=== PATIENT | male | born 1960 | race Caucasian/White ===

== ENCOUNTER 2019-10-27 18:24 | Emergency (ER) | payer OTHER ==
[~2019-10-27] VITALS: Ht 167.6 cm; Wt 74.8 kg
[~2019-10-27 18:24] MED LIST: ALBU2.5V8 IH; ALPR0.25 PO; AMLO-258 PO; AMLO1TAB15 PO; CITA10TA8 PO; LEXAPRO10 MG PO; MORP30TA PO; QUET100T4 PO; RISP0.2519 PO; TIOT18CA IH; atarax PO
[2019-10-27] MEDS ORDERED: IV RINGERS SOLUTION,LACTATED 1,000 ML IV SCH (18:51)
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
[2019-10-27] MEDS ORDERED: MORPHINE SULFATE 10 MG/ML SYRINGE. SQ ONE ×2 (19:00→21:00)
--- NOTE | 2019-10-27 19:03 | NUR ---
DAUGHTER CALLED AND LEFT HER NUMBER. SHE CAN PICK HIM UP IF HE IS DISCHARGED.
[2019-10-27 19:37] LABS: BASO # 0.4 x10^3/uL (0.0-0.2); BASO % 4 % (0-3); EOS # 0.3 x10^3/uL (0.0-0.7); EOS % 3 % (0-3); HEMATOCRIT 48.1 % (39.0-53.0); HEMOGLOBIN 16.3 g/dL (13.0-17.5); LYMPH # 0.6 x10^3/uL (1.0-4.8); LYMPH % 6 % (24-48); MEAN CORPUSCULAR HEMOGLOBIN 30 pg (25-35); MEAN CORPUSCULAR HGB CONC 34 g/dL (31-37); MEAN CORPUSCULAR VOLUME 88 fL (79-100); MONO # 0.8 x10^3/uL (0.0-1.1); MONO % 8 % (0-9); NEUT # 8.2 x10^3uL (1.8-7.7); NEUT % 79 % (31-73); PLATELET COUNT 198 x10^3/uL (140-400); RED BLOOD COUNT 5.45 x10^6/uL (4.30-5.70); RED CELL DISTRIBUTION WIDTH 14.9 % (11.5-14.5); WHITE BLOOD COUNT 10.4 x10^3/uL (4.0-11.0)
[2019-10-27 19:49] LABS: CALCIUM 9.6 mg/dL (8.5-10.1); CREATININE 0.7 mg/dL (0.7-1.3); GFR 115.4; POTASSIUM 4.2 mmol/L (3.5-5.1)
[2019-10-27 20:00] LABS: ALBUMIN 3.3 g/dL (3.4-5.0); DIRECT BILIRUBIN 0.2 mg/dL (0.0-0.2); MAGNESIUM 2.1 mg/dL (1.8-2.4); TOTAL BILIRUBIN 0.5 mg/dL (0.2-1.0); TOTAL PROTEIN 7.7 g/dL (6.4-8.2)
--- NOTE | 2019-10-27 20:21 | RAD ---
CT lumbar spine without contrast, CT pelvis without contrast HISTORY: Fell 3 days ago, severe left hip pain pelvic and low back pain CT PELVIS: Axial CT images were obtained to the pelvis. A pubic ramus fracture is not identified. There is a left femoral neck fracture with angulation and mild displacement. A pelvic fracture is not identified. There is diverticulosis of the colon without diverticulitis. There is no bowel obstruction. Bladder is unremarkable. There is a right lateral abdominal wall hernia. IMPRESSION: 1. Displaced angulated left femoral neck fracture. 2. No pelvic fracture noted. End impression CT lumbar spine Axial CT images were obtained to the lumbar spine. Sagittal and coronal reconstructed images were reviewed. There is marked scoliosis. There is marked degenerative disc disease at L2-3 and L3-4. There is no acute fracture. There is unilateral spondylolysis at L5 without spondylolisthesis. There are old left rib fractures. There is not evidence of severe spinal stenosis. There is foraminal stenosis at L3-4 and L4-5. IMPRESSION: 1. Degenerative changes in the lumbar spine. 2. No acute lumbar fracture. 3. Marked scoliosis. RS Compliance Statement: One or more of the following individualized dose reduction techniques were utilized for this examination: 1. Automated exposure control 2. Adjustment of the mA and/or kV according to patient size 3. Use of iterative reconstruction technique Electronically signed by: Nam Laguna MD (10/27/2019 8:18 PM) [facility]
--- NOTE | 2019-10-27 20:22 | RAD ---
AP chest. HISTORY: Cough, congestion, fall AP view was taken of the chest. There is interstitial lung disease suggesting chronic fibrosis although an acute interstitial infiltrate is possible. There is blunting of the costophrenic angles from small effusions or pleural thickening. Heart is normal in size. There is thoracolumbar scoliosis. IMPRESSION: 1. Mild interstitial lung disease mildly more prominent than an old study from July 2010. 2. No confluent areas of infiltrate. Electronically signed by: Nam Laguna MD (10/27/2019 8:19 PM) [facility]
--- NOTE | 2019-10-27 20:23 | RAD ---
Pelvis one view, left femur AP and lateral views. HISTORY: Fall Single view was taken of the pelvis. There is no pelvic fracture. There is scoliosis in the lumbar spine. Left femur AP and lateral views were taken of the left femur. There is a displaced angulated left femoral neck fracture. There is no other femur fracture. IMPRESSION: 1. No pelvic fracture noted. 2. Left femoral neck fracture. Electronically signed by: Nam Laguna MD (10/27/2019 8:20 PM) [facility]
[2019-10-27] MEDS ORDERED: IV RINGERS SOLUTION,LACTATED 1,000 ML IV ONE (21:00)
[2019-10-27 21:09] LABS: BARBITURATES NEG (NEG); BENZODIAZEPINES NEG (NEG); CANNABINOIDS NEG (NEG); COCAINE NEG (NEG); METHADONE NEG (NEG); OPIATES POS (NEG); PHENCYCLIDINE NEG (NEG)
[2019-10-27 21:15] LABS: BILIRUBIN,URINE NEG (NEG); CLARITY,URINE CLEAR; COLOR,URINE YELLOW; GLUCOSE,URINE NEG (NEG)
[2019-10-27 21:16] LABS: AMPHETAMINE/METHAMPHETAMINE POS (NEG); BACTERIA,URINE 0 /HPF (0-FEW); NITRITE,URINE NEG (NEG); RBC,URINE OCC /HPF (0-2); SQUAMOUS EPITHELIAL CELL,UR OCC /LPF; WBC,URINE OCC /HPF (0-4)
[2019-10-27 21:24] VITALS: BP 156/97
--- NOTE | 2019-10-28 04:41 | EKG ---
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
== END 2019-10-27 22:15 | disposition short-term general hospital (02) ==
LOC: ER 18:24
DX: S72.002A Fracture of unspecified part of neck of left femur, initial encounter for closed fracture (principal); W01.0XXA Fall on same level from slipping, tripping and stumbling without subsequent striking against object, initial encounter; Y93.89 Activity, other specified; Y92.89 Other specified places as the place of occurrence of the external cause; Y99.8 Other external cause status; I10 Essential (primary) hypertension; Z86.73 Personal history of transient ischemic attack (TIA), and cerebral infarction without residual deficits; G89.29 Other chronic pain; R10.2 Pelvic and perineal pain; M54.5 Low back pain
CPT/HCPCS: 36415; 71045; 72131; 72170; 72192; 73552; 80048; 80076; 80307; 81001; 82550; 83735; 83880; 84484; 85025; 85610; 85730; 93005; 96372; 99285; J2270; J7120

== ENCOUNTER 2020-04-02 22:55 | Emergency (ER) | payer OTHER ==
[~2020-04-02] VITALS: Ht 167.6 cm; Wt 60.0 kg
[2020-04-02 22:55] VITALS: BP 136/80
[~2020-04-02 22:55] MED LIST changes: -AMLO-258 PO; +AMLO-308 PO
--- NOTE | 2020-04-02 23:47 | RAD ---
EXAM: 1. Frontal pelvis with two-view left hip. 2. Left tibia/fibula 2 views. HISTORY: Fall, left leg pain and bruising. COMPARISON: None. FINDINGS: A left hip hemiarthroplasty is in expected alignment. The joint spaces and alignment of the right hip are maintained. No pelvic or femoral fractures identified. Osteopenia appears moderate for patient age. There are moderate degenerative changes of the lower lumbar spine with a mild dextroscoliosis. There are chronic healed fracture deformities of the distal tibial and fibular diaphyses. Posterior angulation of the tibia measures 30 degrees. There is also mild medial angulation. Chronic mild depression of the medial tibial plateau is also suspected. No acute fractures are seen. IMPRESSION: 1. No acute fracture. 2. Left hip hemiarthroplasty in expected alignment. 3. Chronic healed fracture deformities of the left tibia and fibula, with 30 degrees posterior angulation of the distal tibial fragment. Electronically signed by: Ela Sims MD (04/02/2020 11:44 PM) [facility]
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
== END 2020-04-03 01:30 | disposition home or self-care (01) ==
LOC: ER 22:55
DX: S76.012A Strain of muscle, fascia and tendon of left hip, initial encounter (principal); S90.02XA Contusion of left ankle, initial encounter; J44.9 Chronic obstructive pulmonary disease, unspecified; I10 Essential (primary) hypertension; Z86.73 Personal history of transient ischemic attack (TIA), and cerebral infarction without residual deficits; G89.29 Other chronic pain; X50.9XXA Other and unspecified overexertion or strenuous movements or postures, initial encounter; W22.8XXA Striking against or struck by other objects, initial encounter; Y93.01 Activity, walking, marching and hiking; Y92.89 Other specified places as the place of occurrence of the external cause; Y99.8 Other external cause status
CPT/HCPCS: 73502; 73590; 99284

== ENCOUNTER 2020-05-21 17:40 | Emergency (ER) | payer OTHER ==
[~2020-05-21] VITALS: Ht 167.6 cm; Wt 60.0 kg
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
[2020-05-21] MEDS ORDERED: IV NORMAL SALINE 1,000ML 1,000 ML IV SCH (18:04)
[2020-05-21] MEDS ORDERED: IV RINGERS SOLUTION,LACTATED 1,000 ML IV SCH (18:04)
[2020-05-21] MEDS ORDERED: ONDANSETRON PF 4 MG/2 ML VIAL. ONE (18:06)
[2020-05-21] MEDS ORDERED: VANCOMYCIN 1 GM in IV NORMAL SALINE 250ML 250 ML IV ONE (18:15)
[2020-05-21] MEDS ORDERED: DEXTROSE 5% IV PRN (18:15)
[2020-05-21] MEDS ORDERED: FAMOTIDINE 20 MG/2 ML VIAL IVP ONE (18:15)
[2020-05-21] MEDS ORDERED: ONDANSETRON PF 4 MG/2 ML VIAL. IVP ONE (18:15)
[2020-05-21] MEDS ORDERED: NOREPINEPHRINE BITARTRATE IV PRN (18:15)
[2020-05-21] MEDS ORDERED: NOREPINEPHRINE BITARTRATE 8 MG in IV DEXTROSE 5% 250 ML IV PRN (18:15)
[2020-05-21] MEDS ORDERED: VANCOMYCIN PER PHARMACY MC PRN (18:15)
[2020-05-21 18:29] LABS: BASO # 0.1 x10^3/uL (0.0-0.2); BASO % 1 % (0-3); EOS # 0.2 x10^3/uL (0.0-0.7); EOS % 1 % (0-3); HEMATOCRIT 38.7 % (39.0-53.0); LYMPH # 1.1 x10^3/uL (1.0-4.8); LYMPH % 6 % (24-48); MEAN CORPUSCULAR HEMOGLOBIN 30 pg (25-35); MEAN CORPUSCULAR HGB CONC 34 g/dL (31-37); MEAN CORPUSCULAR VOLUME 90 fL (79-100); MONO # 0.8 x10^3/uL (0.0-1.1); MONO % 5 % (0-9); NEUT # 15.7 x10^3uL (1.8-7.7); NEUT % 87 % (31-73); PLATELET COUNT 327 x10^3/uL (140-400); RED BLOOD COUNT 4.29 x10^6/uL (4.30-5.70)
[2020-05-21 18:33] LABS: CALCIUM 9.6 mg/dL (8.5-10.1); CREATININE 1.3 mg/dL (0.7-1.3); GFR 56.3; POTASSIUM 3.7 mmol/L (3.5-5.1)
[2020-05-21] MEDS ORDERED: MORPHINE SULFATE 4 MG/ML DISP.SYRIN. ONE (18:39)
[2020-05-21 18:45] LABS: DIRECT BILIRUBIN 0.1 mg/dL (0.0-0.2); TOTAL BILIRUBIN 0.4 mg/dL (0.2-1.0); TOTAL PROTEIN 6.5 g/dL (6.4-8.2)
--- NOTE | 2020-05-21 18:59 | RAD ---
Exam: Acute abdominal series INDICATION: Severe abdominal pain, syncope, weakness TECHNIQUE: Frontal view of the chest with upright and supine views of the abdomen Comparisons: None FINDINGS: The cardiomediastinal silhouette and pulmonary vessels are within normal limits. The lung and pleural spaces are clear. Air and stool are noted throughout the colon to level the rectum in a nonobstructive bowel gas pattern. No free air. No suspicious masses or calcifications. Scoliotic curvature of the lumbar spine. IMPRESSION: 1. No acute cardiopulmonary process. 2. Nonobstructive bowel gas pattern. Electronically signed by: Foster Ashraf MD (05/21/2020 6:56 PM) [id number]
[2020-05-21] MEDS ORDERED: IOHEXOL 300 MG/ML 75 ML VIAL. IV ONE (19:00)
[2020-05-21] MEDS ORDERED: VANCOMYCIN 1.5 GM in IV NORMAL SALINE 500ML 500 ML IV ONE (19:00)
--- NOTE | 2020-05-21 19:28 | RAD ---
Exam: CT of abdomen and pelvis with contrast INDICATION: Severe abdominal pain with nausea and weakness TECHNIQUE: Sequential axial images through the abdomen and pelvis obtained following the administration of 60 mL of Omni 300 IV contrast. Sagittal and coronal reformatted images were reconstructed from the axial data and reviewed. Comparisons: 10/03/2015 FINDINGS: Heart size is normal. No pericardial. Visualized lung bases are clear. No pleural effusion. There is a heterogenous hypoenhancing lesion within the right hepatic lobe series 2 image 27 which measures 1.7 cm. Spleen, gallbladder and right adrenal gland are unremarkable. There is redemonstration of a left adrenal mass which is difficult to visualize however measures approximately 4.3 cm. Large amount of hemorrhage is noted within the left hemiabdomen predominantly centered between the spleen and left kidney. There appears to be a fat plane between this hemorrhage/hematoma in the pancreas. Hemorrhage abuts the left adrenal gland mass. There is a 6 mm calculus at the proximal left ureter. Hypoenhancement of the left kidney is noted. There is mild left-sided hydronephrosis. No other renal or ureteral calculi are identified. Bladder is decompressed not well evaluated. Prostate is not enlarged. Diverticulosis is noted in the colon without evidence of acute diverticulitis. Remainder of the large and small bowel are unremarkable. Abdominal aorta has a normal course and caliber. Abdominal vasculature is patent. IMPRESSION: 1. Large amount of hemorrhage in the left upper quadrant predominantly interposed between the spleen and the left kidney. The hemorrhage measures approximately 12.7 x 9.5 cm in transverse dimension. Etiology of bleed is is not definitively identified. Considerations include hemorrhagic cyst renal lesion versus known left adrenal mass causing hemorrhage. Hemorrhagic pancreatitis or splenic injury is considered less likely however difficult to exclude. Correlate with appropriate lab values and history of trauma. 2. A 6 mm calculus at the proximal left ureter causing mild hydronephrosis. Exposure: One or more of the following in the visualized dose reduction techniques were utilized for this examination: 1. Automated exposure control 2. Adjustment of the MA and/or KV according to patient size 3. Use of iterative of reconstructive technique FOR INTERNAL CODING PURPOSES Critical result: Findings discussed with PHILLY TRUJILLO at 05/21/2020 7:19 PM. RESULT CODE: (C) Electronically signed by: Foster Ashraf MD (05/21/2020 7:25 PM) [id number]
[2020-05-21] MEDS ORDERED: cefTRIAXone SODIUM 1 GM VIAL ONE (20:12)
[2020-05-21] MEDS ORDERED: VANCOMYCIN 1 GM VIAL. ONE ×2 (20:12→20:13)
[2020-05-21] MEDS ORDERED: IV NORMAL SALINE 50ML 50 ML ONE (20:12)
[2020-05-21] MEDS ORDERED: IV NORMAL SALINE 500ML 500 ML ONE ×2 (20:12→20:13)
[2020-05-21 20:41] LABS: HEMATOCRIT 40.7 % (39.0-53.0); HEMOGLOBIN 13.5 g/dL (13.0-17.5); RED BLOOD COUNT 4.51 x10^6/uL (4.30-5.70); RED CELL DISTRIBUTION WIDTH 15.1 % (11.5-14.5); WHITE BLOOD COUNT 14.1 x10^3/uL (4.0-11.0)
[2020-05-21 21:37] LABS: % BANDS 2 % (0-9); % BASOS 1 % (0-3); % LYMPHS 5 % (24-48); % MONOS 3 % (0-10); % SEGS 89 % (35-66)
[2020-05-21 21:38] LABS: PLT ESTIMATE ADEQUATE (ADEQUATE)
[2020-05-21 21:42] VITALS: BP 129/82
== END 2020-05-21 22:20 | disposition short-term general hospital (02) ==
LOC: ER 17:40
DX: R58 Hemorrhage, not elsewhere classified (principal); R10.12 Left upper quadrant pain; D72.829 Elevated white blood cell count, unspecified; E11.9 Type 2 diabetes mellitus without complications; R79.1 Abnormal coagulation profile; E27.8 Other specified disorders of adrenal gland; N13.30 Unspecified hydronephrosis; J44.9 Chronic obstructive pulmonary disease, unspecified; I10 Essential (primary) hypertension; G89.29 Other chronic pain; F17.210 Nicotine dependence, cigarettes, uncomplicated; Z86.73 Personal history of transient ischemic attack (TIA), and cerebral infarction without residual deficits
CPT/HCPCS: 36415; 36430; 36556; 74022; 74177; 80048; 80076; 82550; 82803; 83605; 83690; 83880; 84443; 84484; 85007; 85025; 85027; 85379; 85610; 85730; 86850; 86900; 86901; 86920; 87040; 96361; 96365; 96368; 96375; 99285; J0696; J2405; J3370; J3490; J7030; J7040; J7120; P9016; Q9967; 99292; 99291-25

== ENCOUNTER 2020-09-12 12:29 | Emergency (ER) | payer OTHER ==
[~2020-09-12] VITALS: Ht 167.6 cm; Wt 60.0 kg
[2020-09-12 12:30] VITALS: BP 129/82
--- NOTE | 2020-09-12 12:34 | PHYS DOC ---
Past History Past Medical History: COPD, Hypertension, Schizophrenia, Stroke, Other Additional Past Medical Histor: CHRONIC PAIN, cardiac arrest Past Surgical History: Hip Replacement, Pneumothorax Smoking: Cigarettes Alcohol Use: Occasionally Drug Use: None General Adult EDM: Chief Complaint: OTHER COMPLAINTS HPI: HPI: History gained from patient and EMS. Patient is a 59-year-old male past medical history significant for nonoxygen dependent COPD, schizophrenia, polysubstance abuse who presents after being found down outside. EMS states they were called by bystanders because patient was found down on the ground. They state on arrival the patient wanted to be brought to the emergency department to be evaluated. When asked why the patient wanted to be brought to the emergency department he was unable to express specific concerns. He states he just wanted to be "checked out." He notes that he did use methamphetamine and IV heroin approximate 4 hours prior to arrival. He states he uses this daily. Does note that he had to vodka drinks prior to arrival. He states he is not sure why he fell to the ground. He states that he was walking outside just to get exercise. He states that he was running however he does require a walker at baseline ambulate. He denies any current headache. Denies any chest pain prior to or after falling to the ground. D does note shortness of breath but states this is stable for him. States that he lives at home with his daughter and granddaughters. Denies any abdominal pain. Denies any back pain. States that he does have slurred speech at baseline for history of stroke. Denies any new weakness or worsening slurred speech. Denies confusion. Denies history of cardiac disease. Denies any feelings of irregular rapid heartbeat. He states he has no suicidal homicidal ideations. He states after being evaluated here he wants to go home and continue to use drugs. No further complaints. Review of Systems: Review of Systems: Constitutional: Denies fever or chills Eyes: Denies change in visual acuity HENT: Denies nasal congestion or sore throat Respiratory: Denies cough or shortness of breath Cardiovascular: Denies chest pain or edema GI: Denies abdominal pain, nausea, vomiting, bloody stools or diarrhea : Denies dysuria Musculoskeletal: Positive for fall Integument: Denies rash Neurologic: Denies headache, focal weakness or sensory changes Endocrine: Denies polyuria or polydipsia Lymphatic: Denies swollen glands Psychiatric: Denies depression or anxiety Allergies: Allergies: Allergies Coded Allergies Type Severity Reaction Last Updated Verified No Known Drug Allergies 10/03/15 No Physical Exam: PE: Constitutional: Well developed, well nourished, no acute distress, non-toxic appearance. [] HENT: Normocephalic, atraumatic, bilateral external ears normal, oropharynx moist, no oral exudates, nose normal. [] Eyes: PERRLA, EOMI, conjunctiva normal, no discharge. [] Neck: Normal range of motion, no tenderness, supple, no stridor. [] Cardiovascular:Heart rate regular rhythm, no murmur [] Lungs & Thorax: Bilateral breath sounds clear to auscultation [] Abdomen: soft, no tenderness, no masses, no pulsatile masses. [] Skin: Warm, dry, no erythema, no rash. [] Back: No tenderness, no CVA tenderness. [] Extremities: No tenderness, no cyanosis, no clubbing, ROM intact, no edema. Chronic deformity noted in the left lower extremity overlying the tibia. Abrasions overlying this area noted. [] Neurologic: Alert with intact cognitive function. No aphasia, dysarthria, or neglect. GCS 15. Pupils 3 mm briskly reactive b/l. No APD present. Cranial nerves 2-12 grossly intact; no facial asymmetry present, tongue midline, shoulder shrugging strength intact. Strength 5/5 and symmetric throughout. Light touch sensation intact throughout. Cerebellar testing appropriate without evidence of dysdiadochokinesia. DTR's 2+ in all 4 extremities. Negative pronator drift bilaterally. Gait slowed with walker Psychologic: Affect normal, judgement normal, mood normal. [] Current Patient Data: Labs: Laboratory Tests Test 09/12/20 12:38 White Blood Count 8.5 x10^3/uL Red Blood Count 4.83 x10^6/uL Hemoglobin 14.3 g/dL Hematocrit 43.3 % Mean Corpuscular Volume 90 fL Mean Corpuscular Hemoglobin 30 pg Mean Corpuscular Hemoglobin Concent 33 g/dL Red Cell Distribution Width 15.0 % Platelet Count 292 x10^3/uL Neutrophils (%) (Auto) 66 % Lymphocytes (%) (Auto) 20 % Monocytes (%) (Auto) 9 % Eosinophils (%) (Auto) 4 % Basophils (%) (Auto) 1 % Neutrophils # (Auto) 5.7 x10^3uL Lymphocytes # (Auto) 1.7 x10^3/uL Monocytes # (Auto) 0.8 x10^3/uL Eosinophils # (Auto) 0.3 x10^3/uL Basophils # (Auto) 0.1 x10^3/uL Sodium Level 140 mmol/L Potassium Level 3.9 mmol/L Chloride Level 107 mmol/L Carbon Dioxide Level 29 mmol/L Anion Gap 4 Blood Urea Nitrogen 19 mg/dL Creatinine 0.9 mg/dL Estimated GFR (Cockcroft-Gault) 86.1 Glucose Level 90 mg/dL Calcium Level 9.3 mg/dL Troponin I Quantitative < 0.017 ng/mL EKG: EKG: [] EKG consistent with normal sinus rhythm. Ventricular rate of 87 bpm. [place] normal. Intervals normal. No acute ischemic changes noted. Nonspecific EKG. Radiology/Procedures: Radiology/Procedures: [place] [address] IMAGING REPORT Signed PATIENT: SHAMIKA ELDRIDGE ACCOUNT: [id number] : 1960 LOCATION: ER AGE: 59 SEX: M EXAM STATUS: REG ER ORD. PHYSICIAN: RUTH DIAZ DO REASON: syncope PROCEDURE: CHEST AP ONLY CHEST AP ONLY Clinical indications: Syncope COMPARISON: May 21, 2020. Findings: There is mild increase in the interstitium bilaterally which could be due to bronchitis or mild interstitial lung infiltrates. No lung consolidation or lung mass is seen. There is chronic blunting of the lateral costophrenic angles bilaterally which may be due to chronic pleural thickening. No pneumothorax is seen. The heart size, pulmonary vasculature, mediastinum and both shelbi are stable. Impression: Mild acute bronchitis or interstitial pneumonitis. Electronically signed by: Lalito Vigil MD (09/12/2020 12:49 PM) [id number] DICTATED AND SIGNED BY: LALITO VIGIL MD DATE: 09/12/20 1249 CC: PCP,NO; RUTH DIAZ DO ~MTH0 0 [] Heart Score: Risk Factors: Risk Factors: DM, Current or recent (<one month) smoker, HTN, HLP, family history of CAD, obesity. Risk Scores: Score 0 - 3: 2.5% MACE over next 6 weeks - Discharge Home Score 4 - 6: 20.3% MACE over next 6 weeks - Admit for Clinical Observation Score 7 - 10: 72.7% MACE over next 6 weeks - Early Invasive Strategies Course & Med Decision Making: Course & Med Decision Making Pertinent Labs and Imaging studies reviewed. (See chart for details) [] Patient is a 59-year-old male who presents via EMS for being found down. Upon arrival patient does have a GCS of 15. He is alert and oriented x4. He does endorse heroin and methamphetamine use approximately 4 hours prior to arrival. He states that he desponded to come emergency department to be "checked out." He denies any specific complaints. Basic labs were obtained and were grossly remarkable. Troponin negative. EKG unremarkable. Chest x-ray nonacute. I did discuss results of labs and imaging with the patient. At this time the patient is requesting discharge home. I did explain that given he cannot explain the events surrounding him falling to the ground but there is a chance that this could be underlying life and limb threatening illness. He does appear to be clinically sober and have capacity at this time. He is electing for outpatient follow-up. I did highly encouraged to follow-up with his primary care physician next week. Return precautions were discussed and understood. Patient stable for discharge home. Dora Disclaimer: Dora Disclaimer: This electronic medical record was generated, in whole or in part, using a voice recognition dictation system. Departure Departure: Impression: Primary Impression: Fall Qualified Codes: W19.XXXA - Unspecified fall, initial encounter Additional Impression: Polysubstance abuse Referrals: PCP,UNKNOWN (PCP) LUIS MIGUEL SARAVIA MD Patient Instructions: Heroin Abuse and Withdrawal, Methamphetamine Abuse, Complications Additional Instructions: Please follow-up your primary care physician next week. RUTH DIAZ DO Sep 12, 2020 12:34
--- NOTE | 2020-09-12 12:52 | RAD ---
CHEST AP ONLY Clinical indications: Syncope COMPARISON: May 21, 2020. Findings: There is mild increase in the interstitium bilaterally which could be due to bronchitis or mild interstitial lung infiltrates. No lung consolidation or lung mass is seen. There is chronic blunting of the lateral costophrenic angles bilaterally which may be due to chronic pleural thickening. No pneumothorax is seen. The heart size, pulmonary vasculature, mediastinum and both shelbi are stable. Impression: Mild acute bronchitis or interstitial pneumonitis. Electronically signed by: Jordan Vigil MD (09/12/2020 12:49 PM) [id number]
[2020-09-12 13:16] LABS: CALCIUM 9.3 mg/dL (8.5-10.1); CREATININE 0.9 mg/dL (0.7-1.3); GFR 86.1; POTASSIUM 3.9 mmol/L (3.5-5.1)
[2020-09-12 13:17] LABS: BASO # 0.1 x10^3/uL (0.0-0.2); BASO % 1 % (0-3); EOS # 0.3 x10^3/uL (0.0-0.7); EOS % 4 % (0-3); HEMATOCRIT 43.3 % (39.0-53.0); HEMOGLOBIN 14.3 g/dL (13.0-17.5); LYMPH # 1.7 x10^3/uL (1.0-4.8); LYMPH % 20 % (24-48); MEAN CORPUSCULAR HEMOGLOBIN 30 pg (25-35); MEAN CORPUSCULAR HGB CONC 33 g/dL (31-37); MEAN CORPUSCULAR VOLUME 90 fL (79-100); MONO # 0.8 x10^3/uL (0.0-1.1); MONO % 9 % (0-9); NEUT # 5.7 x10^3uL (1.8-7.7); NEUT % 66 % (31-73); PLATELET COUNT 292 x10^3/uL (140-400); RED BLOOD COUNT 4.83 x10^6/uL (4.30-5.70); WHITE BLOOD COUNT 8.5 x10^3/uL (4.0-11.0)
--- NOTE | 2020-09-12 16:36 | EKG ---
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
== END 2020-09-12 18:31 | disposition home or self-care (01) ==
LOC: ER 12:29
DX: S80.812A Abrasion, left lower leg, initial encounter (principal); F19.10 Other psychoactive substance abuse, uncomplicated; J44.9 Chronic obstructive pulmonary disease, unspecified; I10 Essential (primary) hypertension; F20.9 Schizophrenia, unspecified; G89.29 Other chronic pain; F17.210 Nicotine dependence, cigarettes, uncomplicated; W18.39XA Other fall on same level, initial encounter; Y93.01 Activity, walking, marching and hiking; Y92.89 Other specified places as the place of occurrence of the external cause; Y99.8 Other external cause status
CPT/HCPCS: 36415; 71045; 80048; 84484; 85025; 93005; 99285

== ENCOUNTER 2021-05-02 23:18 | Emergency (ER) | payer OTHER ==
[~2021-05-02] VITALS: Ht 167.6 cm; Wt 55.1 kg
[2021-05-02] MEDS ORDERED: OXICODONE (23:42)
--- NOTE | 2021-05-03 00:02 | EKG ---
[address] [address] Test Date: 2021-05-02 Test Time: 23:28:59 Pat Name: SHAMIKA ELDRIDGE Department: Room: Gender: M Language Tutor: : 1960 Requested By: BIJAN TANG Order Number: [id number] Reading MD: Measurements Intervals [place] Rate: 83 P: 62 NC: 178 QRS: 51 QRSD: 100 T: 44 QT: 366 QTc: 436 Interpretive Statements SINUS RHYTHM NO SPECIFIC ECG ABNORMALITIES RI6.02 No previous ECG available for comparison
--- NOTE | 2021-05-03 00:20 | PHYS DOC ---
Past History Past Medical History: COPD, Hypertension, Schizophrenia, Stroke, Other Additional Past Medical Histor: CHRONIC PAIN, cardiac arrest, polysubstance abuse Past Surgical History: Hip Replacement, Pneumothorax Smoking: Cigarettes Alcohol Use: Occasionally Drug Use: None Adult General Chief Complaint Chief Complaint: OVERDOSE HPI HPI Patient is a 60-year-old male with a past medical history significant for heroin use who presents after accidentally overdosing on heroin at home. States that his significant other at home called EMS. States that he has been doing heroin for several years and wants to quit but thinks he did a little bit too much this time. States he was not trying to harm himself in any way and it was accidental. EMS states that on arrival he did have a pulse and was breathing but was hard to arouse and was given 2 mg of Narcan. States that he woke up almost immediately and has been awake and alert since. Patient denies taking any other substances. Denies any recent traumas, travels, fevers, chest pain, shortness of breath, abdominal pain, nausea, vomiting. States he has been trying to quit using heroin but is having a tough time. Review of Systems Review of Systems Review of systems otherwise unremarkable except noted in HPI Allergies Allergies Allergies Coded Allergies Type Severity Reaction Last Updated Verified No Known Drug Allergies 05/02/21 No Physical Exam Physical Exam Constitutional: Well developed, well nourished, no acute distress, non-toxic appearance. [] HENT: Normocephalic, atraumatic, oropharynx moist, no oral exudates, nose normal. [] Eyes: PERRLA, EOMI, conjunctiva normal, no discharge. [] Neck: Normal range of motion, no tenderness, Cardiovascular:Heart rate regular rhythm, no murmur [] Lungs & Thorax: Bilateral breath sounds clear to auscultation [] Abdomen: Bowel sounds normal, soft, no tenderness, no masses, no pulsatile masses. [] Skin: Warm, dry, no erythema, no rash. [] Back: No tenderness, no CVA tenderness. [] Extremities: No tenderness, no cyanosis, no clubbing, ROM intact, no edema. [] Neurologic: Alert and oriented X 3, normal motor function, normal sensory function, able to sit, stand and walk at baseline, no focal deficits noted. [] Psychologic: Affect normal, judgement abnormal, mood normal. [] EKG EKG Rate of 83, QRS of 100, QTc of 436, no STEMI [] Radiology/Procedures Radiology/Procedures [] Heart Score C/O Chest Pain: No Risk Factors: Risk Factors: DM, Current or recent (<one month) smoker, HTN, HLP, family history of CAD, obesity. Risk Scores: Risk Factors: DM, Current or recent (<one month) smoker, HTN, HLP, family history of CAD, obesity. Course & Med Decision Making Course & Med Decision Making Patient is a 60-year-old male who presents to the ED after receiving Narcan for accidentally overdosing on heroin On arrival to the emergency department, vital signs not concerning. GCS of 15. Patient asking for something to eat and given full meal which he tolerated. Patient declined need for laboratory analysis. Did get EKG which is noted above and no STEMI. Patient states that he feels well, has no medical complaints and would like to be called a cab so he could go home. Discussed the risks of using substances including IV drugs including but not limited to significant illness, infection, disability and . Patient stated that he understood all this and wants to quit using but it has been having some trouble. Gave patient local resources for primary care physicians, free clinics in the [facility] as well as other local resources. Advised to call primary care physician first thing in the morning to update on ED visit and set up a follow- up visit. Gave strict return precautions to the ED. Patient grateful, verbalized understanding and agreed with plan of discharge. [] Dragon Disclaimer Dragon Disclaimer This electronic medical record was generated, in whole or in part, using a voice recognition dictation system. Departure Departure: Impression: Primary Impression: Accidental heroin overdose Disposition: 01 HOME / SELF CARE / HOMELESS Condition: GOOD Referrals: PCP,NO (PCP) KRISTEN AC MD Patient Instructions: Heroin Abuse and Withdrawal, Narcotic Overdose Additional Instructions: Thank you for coming into the emergency department tonight and allowing us to take care of you and talk to you about your heroin use. Please read all of the attached information very carefully to go back over what we discussed. As we discussed it would be very nichols to stop using substances as they could cause significant illness, infection, disability and as you stated you understood and were trying to quit. If you do not have a primary care physician please call the one at the number provided or in the packet provided to establish care as they can help with cessation of substances. Please come back to the ED with new or concerning symptoms as discussed. BIJAN TANG MD May 03, 2021 00:20
== END 2021-05-03 00:35 | disposition home or self-care (01) ==
LOC: ER 23:18
DX: T40.1X1A Poisoning by heroin, accidental (unintentional), initial encounter (principal); J44.9 Chronic obstructive pulmonary disease, unspecified; I10 Essential (primary) hypertension; F20.9 Schizophrenia, unspecified; F17.210 Nicotine dependence, cigarettes, uncomplicated; G89.29 Other chronic pain; Z86.73 Personal history of transient ischemic attack (TIA), and cerebral infarction without residual deficits; Y92.89 Other specified places as the place of occurrence of the external cause
CPT/HCPCS: 93005; 99283